=== PATIENT | female | born 1955 | race Caucasian/White ===

== ENCOUNTER 2022-04-14 12:03 | Emergency (ER) | payer BC, SELFPAY ==
[2022-04-14 12:28] VITALS: BP 160/87; PULSE 98; RESP 14; TEMP 36.9; O2SAT 97; BMI 36.0
--- NOTE | 2022-04-14 15:52 | W.ED.GENADLT ---
HPI - General Adult General: Chief complaint: General Medical Stated complaint: sick for two weeks Time Seen by Provider: 04/14/22 15:06 History of Present Illness: Patient reports that she has been ill 10 to 12 days. She states that she has had nasal congestion and drainage. She thinks that this may be going into her lungs and causing her to have bronchitis. She has a history of bronchitis. She denies fever. She has felt hot and cold off and on. Is not coughing anything up. She has been sleeping a lot. Associated symptoms: Deny chest pain, dyspnea, nausea, palpitations or vomiting Review of Systems Const: Denies: fever(s), chills or body aches ENMT: Reports: throat pain, nasal discharge, nasal congestion and other (Ears feeling full bilateral) Card: Denies: chest pain or palpitations Resp: Reports: non-productive cough and wheezing; Denies: dyspnea GI: Denies: abdominal pain, nausea or vomiting Physical Exam Const: COMMON NORMALS: no acute distress, patient oriented x3 and alert HENMT: COMMON NORMALS: TM's normal bilaterally FACE & SINUS: sinus tenderness (Bilateral) frontal and maxillary TYMPANIC MEMBRANE: TM's normal bilaterally THROAT: posterior oropharynx normal and postnasal drainage Neck/C-Spine: COMMON NORMALS: no JVD Resp: COMMON NORMALS: normal respiratory effort and No use of accessory muscles AUSCULTATION: wheezes expiratory wheezes and throughout Cardio: COMMON NORMALS: no JVD, regular rate, regular rhythm, S1 normal heart sound present, S2 normal heart sound present and No murmurs present (Cardio) RATE: regular rate RHYTHM: regular rhythm HEART SOUNDS: S1 normal heart sound present and S2 normal heart sound present Neuro: COMMON NORMALS: patient oriented x3 SENSORIUM/ORIENTATION: Yes alert Course Vital Signs: Vital signs: Vital Signs Temperature 98.5 F 04/14/22 12:28 Pulse Rate 98 04/14/22 12:28 Respiratory Rate 14 04/14/22 12:28 Blood Pressure 160/87 04/14/22 12:28 Pulse Oximetry 97 04/14/22 12:28 Oxygen Delivery Me thod 04/14/22 12:28 MDM - General Adult Medical Decision Making Consider upper respiratory infection, strep pharyngitis, acute bronchitis, acute sinusitis. Strep test was originally ordered given patient's complaint in triage that her throat felt like it was swelling; however, further discussion with the patient revealed that she is more concerned about bronchitis. Physical exam findings are consistent with postnasal drainage in the back of her throat but she is tender to palpation over maxillary and frontal sinuses. Lungs with some expiratory wheezes throughout but no crackles auscultated patient is afebrile. Low suspicion for pneumonia at this time. Advised patient that I recommend treatment for acute sinusitis and acute bronchitis. Patient reports that she has numerous medication allergies but she cannot recall them so she is going to call her doctor and try and get a list of all of the medications that she can and cannot take. Patient called her doctor's office. She found out that she does tolerate Zithromax antibiotic. Treat patient with Z-Juan and steroids. She reports that she has albuterol inhaler at home. Educated her on conservative treatment and use of medications prescribed today. Follow-up with primary care provider. Return to the ER for new or worsening symptoms Discharge Plan Discharge Patient Disposition: Home Clinical Impression: Acute maxillary sinusitis, Acute bronchitis Condition: Stable Prescriptions: New prednisone 20 mg tablet 40 mg PO DAILY 5 Days Qty: 10 0RF Zithromax Z-Juan 250 mg tablet See Rx Instructions .ROUTE .COMPLEX Qty: 6 0RF Rx Instructions: For 250 mg dose pack: take 500 mg today (day 1), then 250 mg for 4 days (days 2-5) Discharge Orders: Discharge ED (Routine); Ordered 04/14/22 Ordered By: Ashleigh Segovia Referrals: Bradley Davis DO [Primary Care Provider] - Discharge Diet: Usual diet Discharge Activity: Resume usual activity Patient Instructions: Sinusitis (ED), Acute Bronchitis (ED) Activity Restrictions/Additional Instructions: Take antibiotic as directed. Take steroids as directed with food. Make sure that you are using your rescue inhaler every 4-6 hours as needed for wheezing and shortness of breath. I recommend using nasal sinus washes. You can use [id number] antihistamines and Flonase to help with controlling postnasal drainage. Follow-up with primary care provider as needed. Return to the ER for new or worsening symptoms. 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
[2022-04-14 16:33] LABS: Rapid Strep A Test Negative (Negative)
== END 2022-04-14 16:26 | disposition home or self-care (01) ==
PROVIDERS: Emergency Provider Nurse Practitioner Family; PCP Family Medicine
DX: J01.00 Acute maxillary sinusitis, unspecified (principal); J20.9 Acute bronchitis, unspecified
CPT/HCPCS: 87081; 87880; 99283